=== PATIENT | male | born 1970 | race Caucasian/White ===

== ENCOUNTER 2021-12-01 00:58 | Day surgery (SDC) | payer BC, SELFPAY ==
[2021-11-22 13:29] VITALS: BMI 39.5
--- NOTE | 2021-11-22 13:35 | PC.NURSE ---
Report to the Outpatient Waiting Room, entrance under the green pavilion located off [facility], at time _0930__ on date _[id number]_. OR Time: __1130__. - You and your visitor will be asked a series of questions to screen for COVID 19 for your protection. - A mask is required within the hospital. - Patient has received COVID Vaccine at least 14 days prior to procedure date. Patients may have clear liquids (water, carbonated beverages, clear teas, apple juice) until 3 hours prior to surgery with a maximum of 20 ounces. - No food from midnight until time of surgery Take the following medications with a SIP of water the morning of surgery: ___None Medications to discontinue per physician Date to take last dose Please no make-up, nail argentine, hairspray, perfume, deodorant, or body powder the day of surgery. No jewelry (including any body piercings) or valuables the day of surgery, leave them at home. Please take a shower or bath the night before, or the morning of, surgery with an antibacterial soap. Wear comfortable, loose fitting clothing. Children are encouraged to wear pajamas. - Jewelry must be removed prior to entering the operating room. Rings and piercings that are not removed may be cut off. - The hospital will not accept responsibility for valuables. - Please leave all valuables, including medications, at home the day of surgery. If you are going home after surgery, a licensed drop hammer pile driver operator must drive you home. - NO public transportation without another adult. - We recommend that an adult stay with you for 24 hours following discharge. - We also recommend that you do not drive, make important decision, drink alcoholic beverages, or take any drugs that were not prescribed by your health care provider for at least 24 hours after your discharge time. For Pediatric surgeries, we recommend two adults accompany the child home (only one inside the building at this time). One visitor will be allowed to accompany the patient into the hospital. Patients visitor will be instructed to remain with patient at all times or leave the building. We will allow the visitor to come back to the postoperative area when patient is ready. Follow any additional instructions given to you from your surgeon. Telephone instructions given to Patient and asked if any additional questions and then verbalized understanding. Patient advised to call surgeon office or pre surgery nurse liaison [phone] if any additional questions.
--- NOTE | 2021-11-25 09:40 | PM.SD2 ---
Same Day Admit/Disch: HPI History of Present Illness Chief complaint: Rt Ing Hernia , Umb Hernia Narrative: Guy Kang is a 51 year old male With a 3 month history of right-sided back pain that radiates down through the right groin to the right testicle. He had finished remodeling his house and thought possibly he had injured his back causing this. His primary care physician evaluated him and ordered as CT scan of the abdomen and pelvis. No lumbosacral spine abnormalities were noted however he did have bilateral fat containing inguinal hernias and a small umbilical hernia. He was seen in the office in late September. Exam showed a small right inguinal hernia and a small umbilical hernia. After his office visit, it was discussed that repair of these hernias was unlikely to improve his back pain. He decided to return to his primary care physician for further evaluation of his lower back. He called back later the same day and had decided he wanted to proceed with inguinal and umbilical hernia repairs. Full discussion of the 2 surgeries had been undertaken at his office visit. He is taken to surgery now for right inguinal hernia repair as well as umbilical hernia repair. 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 Spiritual care concerns: No Same Day Admit/Disch: Med Pre-admit Medications Home Medications Medication Instructions Recorded Confirmed Type tramadol 50 mg tablet 50 mg PO Q6H PRN 10/25/21 12/01/21 History cyclobenzaprine 5 mg PO TID PRN 11/22/21 12/01/21 History hydrocodone-acetaminophen 1 - 2 tablet PO Q6H PRN #20 tablet 12/01/21 Rx ketorolac 10 mg PO Q6H 4 Days #16 tablet 12/01/21 Rx Exam Const: General: comfortable, no acute distress, alert and awake HENMT: Head: normocephalic and atraumatic Mouth: Yes Normal oral and palatal mucosa present Eyes: Conjunctivae: conjunctivae normal Pupils: Equal, round and reactive pupils present EOM: EOMs intact bilaterally Neck: Neck: normal visual inspection, no lymphadenopathy and nontender Resp: Effort & Inspection: normal respiratory effort Auscultation: clear to auscultation bilaterally Cardio: Rate: regular rate Rhythm: regular rhythm Heart sounds: no gallops, no murmurs and no rubs GI: Inspection: non-distended, obesity and visible herniation ( Umbilical) GI Palp: Yes Soft to palpation, No Tenderness to palpation present (GI), No Hepatomegaly present, No Splenomegaly present and Yes Hernia present ( small umbilical hernia, tender, 1 cm defect) Auscultation: normal bowel sounds : Male General Exam: Yes hernia ( small right inguinal hernia, no left inguinal hernia) Penis: Yes normal penis Scrotum: scrotum normal Testes: Testes normal ( no testicular tenderness), no testicular mass and no testicular tenderness Skin: Lesions: no lesions Rashes: no rashes Neuro: General: no focal motor deficits and CN's II-XI intact bilaterally Cranial nerves: Yes Equal, round and reactive pupils present, Yes Bilaterally intact EOM present, Yes facial symmetry and Yes Midline tongue present Speech: normal speech Motor exam (neuro): 5/5 motor strength present throughout and Motor abnormalities not present Extrem: General: no clubbing, cyanosis or ed
--- NOTE | 2021-12-01 07:07 | WPDHPUPDATE1 ---
History and Physical Update Update Date/Time: 12/01/21 07:07 History and Physical has been reviewed, including an updated exam of the patient. There are NO changes in the patient's condition. Risks, benefits, and alternatives have been discussed and questions answered. Patient agrees to proceed with procedure.
--- NOTE | 2021-12-01 09:59 | WPDANESEPPF ---
Anes - Initial Pre Proc Eval Procedure: Operation Date: 12/01/21 11:30 Proposed Procedures p Right Inguinal Hernia Repair - Dany Maloney MD s Umbilical Hernia Repair with Mesh - Dany Maloney MD Date/Time: 12/01/21 09:59 Surgeon: Dany Maloney MD Pre Op Diagnosis: Rt Ing Hernia , Umb Hernia Patient Data Age: 51 Gender: M Height: 1.78 m Weight: 125 kg Allergies Allergy/AdvReac Type Severity Reaction Status Date / Time No Known Allergies Allergy Verified 12/01/21 09:52 Home Medications Medication Instructions Recorded Confirmed Type tramadol 50 mg tablet 50 mg PO Q6H PRN 10/25/21 12/01/21 History cyclobenzaprine 5 mg PO TID PRN 11/22/21 12/01/21 History Patient hx anesthesia problems: none Family hx anesthesia problems: none Results Review: All pre-operative results and documents have been reviewed as part of the pre-operative evaluation. 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 Informed Consent: The patient's anesthetic plan and its attendant risks and benefits were discussed with the patient/family/POA. Questions were solicited and answers provided to the satisfaction of the patient/family/POA.
[2021-12-01] MEDS: ACETAMINOPHEN 500 MG TABLET 1000 MG PO (10:00)
[2021-12-01] MEDS: LACTATED RINGERS 1,000 ML 30 ML IV CONT ×2 (10:10→13:31)
[2021-12-01 10:29] VITALS: BP 160/95; PULSE 76; RESP 16; TEMP 36.6; O2SAT 100
[2021-12-01] MEDS: KETOROLAC 15 MG/ML VIAL (*BKC) IV PUSH (10:35)
[2021-12-01] MEDS: ceFAZolin 3 GM/D5W 100 ML 100 ML IVPB (10:45)
[2021-12-01 13:07] VITALS: BP 114/65; PULSE 74; RESP 16; TEMP 36.8; O2SAT 96
[2021-12-01 13:30] VITALS: BP 124/65; PULSE 65; RESP 16; O2SAT 96
--- NOTE | 2021-12-01 13:32 | W.PM.PROC2 ---
Procedure Note - Detailed Date of Procedure 12/01/21 Pre-op Diagnosis Rt Ing Hernia , Umb Hernia Post-op Diagnosis Same Procedure Performed Repair right inguinal hernia with large PerFix plug light, repair umbilical hernia with 4.[address] underlay mesh Surgeon Dany Maloney MD Nursing Professor Charlotte SAINZ, Greyson SAINZ Anesthesia General (G IV S) and Local (0.25% Marcaine with epinephrine, Xaracoll for inguinal hernia) Indications Patient was having some back and testicular pain. CT scan showed bilateral fat containing inguinal hernias and an umbilical hernia. He was seen in the office. His back pain has been improving and is musculoskeletal nature. He was found to have a right inguinal hernia on exam as well as an umbilical hernia. He is taken to surgery now for repair of each hernia. Findings The inguinal hernia was an indirect hernia defect. The umbilical hernia was a 1.5 x 0.7 cm defect running longitudinally in length. Description of Procedure The patient was checked in the preoperative holding area. He was then taken to surgery and anesthesia was introduced with GIVS technique. The abdomen and right groin including the genitalia were prepped and draped. I marked the proposed incisions in the right groin and just below the umbilicus. We started with the right groin area. Local was infiltrated in the area of the anticipated incision as well as in the subcutaneous. Incision was made and dissection was carried down through the subcutaneous. Crossing veins were cauterized and divided. We did encounter a particularly large of vein. This was doubly clamped divided in each side ligated with 3-0 Vicryl ties. We continued the dissection through the subcutaneous and down to the external oblique aponeurosis. The aponeurosis was exposed as was the external oblique fascia. The external ring was exposed and the hernia was noted to be protruding from the external ring. Local was infiltrated deep to the external oblique aponeurosis in the area of the inguinal canal and its contents. The aponeurosis was opened laterally and extended medially through the external ring. The leaves of the aponeurosis were freed from the underlying inguinal canal contents and spermatic cord. I then mobilized the cord medially on a [place] drain. I dissected the cord back to the internal ring mobilizing the cord. The fairly large hernia was found easily. There was a preponderance of inguinal canal fat associated with it. The fatty tissue was dissected free and discarded. We dissected the hernia sac back to a high dissection. Care was taken to avoid injury to the vessels and structures of the spermatic cord. We dissected back to a high dissection and dunked the sac and the retroperitoneum. A large PerFix plug was chosen. It was placed in the defect. The edges were sutured to the transversalis fascia with interrupted 3-0 Vicryl suture. The defect was then partially closed with interrupted 3-0 Vicryl suture. I then cut the mesh to the appropriate size and laid over the inguinal canal floor. The lateral leaves passed beyond the cord. I then put the 1st 2 pieces of Xaracoll over the mesh. The cord and ilioinguinal nerve which had been left attached to the cord throughout the surgery was laid over the Xaracoll and the mesh. The external oblique aponeurosis was closed with interrupted 3-0 Vicryl suture. Two additional pieces of Xaracoll were placed over the aponeurosis. Dawna's fascia was closed with interrupted 3-0 Vicryl suture. The final 2 pieces of Xaracoll were placed in the subcutaneous. The skin was loosely approximated with interrupted subcuticular 4-0 Vicryl skin sutures. The skin was finally closed with a running 4-0 Monocryl skin suture. This wound was then quarantined with a towel. We turned our attention to the umbilicus. I infiltrated local in the area of the anticipated infraumbilical curved incision. Additional local was infiltrated into the
[2021-12-01] MEDS: ONDANSETRON INJ 4 MG/2 ML VIAL IV PUSH (13:42)
[2021-12-01 14:00] VITALS: BP 130/78; PULSE 61
[2021-12-01 14:30] VITALS: BP 115/75; PULSE 61
[2021-12-01] MEDS: oxyCODONE HCL (*CRX) 5 MG TAB IR PO (14:36)
[2021-12-01 15:00] VITALS: BP 123/78; PULSE 61
== END 2021-12-01 15:28 | disposition home or self-care (01) ==
PROVIDERS: PCP Family Medicine; Visit Provider Surgery
PROC: (CPT 49505; principal; 2021-12-01 11:30)
PROC: (CPT 49505; 2021-12-01 11:30)
DX: K40.90 Unilateral inguinal hernia, without obstruction or gangrene, not specified as recurrent (principal); K42.9 Umbilical hernia without obstruction or gangrene; N50.811 Right testicular pain; M54.9 Dorsalgia, unspecified; E78.5 Hyperlipidemia, unspecified; G47.33 Obstructive sleep apnea (adult) (pediatric)
CPT/HCPCS: 49505; 49585; A9270; C1781; J0690; J1100; J1885; J2250; J2405; J2704; J3010; J7120